=== PATIENT | female | born 1960 | race African-American/Black ===

== ENCOUNTER 2022-02-13 15:15 | Emergency (ER) | payer OTHER ==
[2022-02-13 15:28] VITALS: BP 160/68; PULSE 80; TEMP 98.3; BMI 29.2
[2022-02-13] MEDS ORDERED: IBUPROFEN 400 MG TABLET (FP) PO ONE ×2 (17:30→17:43)
[2022-02-13] MEDS ORDERED: METHOCARBAMOL 500 MG TABLET PO ONE (17:30)
[2022-02-13] MEDS ORDERED: METHOCARBAMOL 500 MG TABLET ONE (17:43)
== END 2022-02-13 18:18 | disposition home or self-care (01) ==
LOC: JERFT 15:15
DX: M54.89 Other dorsalgia (principal)
CPT/HCPCS: 72070-TC-FY; 73030-TC-RT-FY; 99284-25